=== PATIENT | male | born 2000 | race Caucasian/White ===

== ENCOUNTER → 2024-10-29 | Outpatient (CLI) | payer BC ==
--- NOTE | 2024-10-29 08:18 | US ---
EXAMINATION TYPE: US abdomen limited DATE OF EXAM: 10/29/2024 COMPARISON: NONE CLINICAL INDICATION: Male, 23 years old with history of R74.8 ABNORMAL SERUM ENZYMES; elevated labs TECHNIQUE: Grayscale and color Doppler imaging of the right upper quadrant was performed. FINDINGS: EXAM MEASUREMENTS: Liver Length: 12.6 cm Gallbladder Wall: 0.21 cm CBD: 0.35 cm Right Kidney: 10.1 x 5.7 x 4.3 cm CASING FLUID TENDER NOTES: Pancreas: parts seen appear wnl Liver: heterogeneous Gallbladder: singular echogenic focus seen measuring 0.5cm Evidence for sonographic Tee's sign: No CBD: wnl Right Kidney: wnl IMPRESSION: Hepatic steatosis. Tiny gallstone difficult to exclude versus polyp. [facility], , 10/29/2024 8:15 AM
== END | disposition home or self-care (01) ==
LOC: RADUSWWP 07:05
PROVIDERS: ATTEND Family Medicine
DX: K76.0 Fatty (change of) liver, not elsewhere classified (principal); R74.8 Abnormal levels of other serum enzymes
CPT/HCPCS: 76705